=== PATIENT | male | born 1950 | race Two or more races ===

== ENCOUNTER 2018-10-15 16:07 | Emergency (ER) | payer OTHER ==
[~2018-10-15] VITALS: Ht 175.3 cm; Wt 69.9 kg
[2018-10-15] MEDS ORDERED: COLACE100 MG ORAL (16:59)
[2018-10-15] MEDS ORDERED: ANUSOL-HC30 GM RC (16:59)
[2018-10-15 17:13] VITALS: BP 125/78
[2018-10-15 17:18] VITALS: BP 132/80
--- NOTE | 2018-10-15 18:01 | Emergency Room Report ---
History of Present Illness General Chief Complaint: Pain Source: Patient, Family Member Present Illness HPI Patient presents emergency department today complaining of 10 days of rectal pain. Patient states that he had a bowel movement squeezed too hard and since then has had some rectal pain. He denies any nausea vomiting diarrhea chills. Denies any rectal bleeding fever chest pain shortness breath. Denies any dysuria or urinary frequency. Symptoms noted to be mild to moderate. No other complaints are noted. No other modifying factors. No other associated signs and symptoms. No other complaints were noted. Allergies: Coded Allergies: No Known Allergies (Unverified , 10/15/18) Patient History Past Medical History: other - prosthetic hypertrophy Past Surgical History: none Pertinent Family History: none Social History: Denies: smoking, alcohol use, drug use Reviewed Nursing Documentation: PMH: Agreed; PSxH: Agreed Nursing Documentation-PMH Past Medical History: No History, Except For Review of Systems All Other Systems: negative except mentioned in HPI Physical Exam Vital Signs Date Time Temp Pulse Resp B/P (MAP) Pulse Ox O2 Delivery O2 Flow Rate FiO2 10/15/18 16:18 98.1 55 19 125/78 96 Room Air Sp02 EP Interpretation: reviewed, normal General Appearance: normal inspection, well appearing, no apparent distress, alert Head: atraumatic Eyes: bilateral eye normal inspection ENT: normal ENT inspection, hearing grossly normal, normal voice Neck: normal inspection, full range of motion, supple, no bony tend Respiratory: normal inspection, lungs clear, normal breath sounds, no respiratory distress, no retraction, no wheezing Cardiovascular #1: regular rate, rhythm, no edema Gastrointestinal: normal inspection, normal bowel sounds, non tender, soft, no guarding, no hernia Rectal: normal exam, normal rectal tone, other - mild tenderness to palpation, , no evidence of thrombosed hemorrhoid or abscess or proctitis Genitourinary: no CVA tenderness Musculoskeletal: normal inspection, back normal, normal range of motion Neurologic: normal inspection, alert, responsive, speech normal Psychiatric: normal inspection, judgement/insight normal, mood/affect normal Skin: normal inspection, normal color, no rash Medical Decision Making Diagnostic Impression: Primary Impression: Rectal pain ER Course Patient presents emergency department today complaint rectal pain. Differential considerations include colitis, diverticulitis, constipation, anal fissure, hemorrhoids. Patient's exam showed benign. There is no evidence anal fissure abscess or colitis on exam. No evidence any blood on exam. Symptoms consistent with hemorrhoids. Patient will be given a stool softeners and Anusol topical. Recommend close follow-up and return emergency room for any worsening symptoms and as needed. Of note because of patient's advanced age I did offer CAT scan rule out any abdominal emergency. However patient's family declined. He understands risks of not performing CAT scan including missing any infection. He states that they would prefer to try to medications and if symptoms do not improve and to return to ER. This sounds reasonable given patient's nontoxic-appearing with benign exam.Patient is advised to follow up with primary doctor in 2-3 days and return the emergency room for any worsening symptoms and as needed. Last Vital Signs Date Time Temp Pulse Resp B/P (MAP) Pulse Ox O2 Delivery O2 Flow Rate FiO2 10/15/18 17:13 98.1 75 19 125/78 96 Room Air Status: unchanged Disposition: HOME, SELF-CARE Condition: Stable Scripts Hydrocortisone Hc 2.5% Cream (ANUSOL-HC 2.5% CREAM) Y Cr 30 GM RC TID for 7 Days, GM Prov: Chung Mathis MD 10/15/18 Docusate Sodium* (COLACE*) 100 Mg Capsule 100 MG ORAL THREE TIMES A DAY for 14 Days, CAP Prov: Chung Mathis MD 10/15/18 Patient Instructions: Hemorrhoids, [id number] Chung Mathis MD Oct 15, 2018 18:01
== END 2018-10-15 17:18 | disposition home or self-care (01) ==
LOC: EMR 16:56
DX: K62.89 Other specified diseases of anus and rectum (principal)
CPT/HCPCS: 99282